=== PATIENT | female | born 1955 | race Caucasian/White ===

== ENCOUNTER 2019-01-26 17:22 | Emergency (ER) | payer OTHER ==
[~2019-01-26] VITALS: Ht 162.6 cm; Wt 47.6 kg
[2019-01-26 17:25] VITALS: BP 128/76
--- NOTE | 2019-01-26 17:31 | NUR ---
PAYTON DORSEY AT BEDSIDE FOR EVAL.
[2019-01-26] MEDS ORDERED: IBUPROFEN 600 MG TABLET PO ONE ×2 (17:39→18:00)
--- NOTE | 2019-01-26 17:40 | NUR ---
HARD COLLAR APPLIED
--- NOTE | 2019-01-26 17:43 | NUR ---
PT IS WHEELED TO CT SCAN VIA [facility].
--- NOTE | 2019-01-26 18:42 | NUR ---
Patient discharged in custody in stable condition. Written and verbal after care instructions given. Patient verbalizes understanding of instruction.
== END 2019-01-26 18:51 ==
LOC: ER 17:35
DX: S16.1XXA Strain of muscle, fascia and tendon at neck level, initial encounter (principal); I10 Essential (primary) hypertension; E03.9 Hypothyroidism, unspecified; G43.909 Migraine, unspecified, not intractable, without status migrainosus; F29 Unspecified psychosis not due to a substance or known physiological condition; Z02.89 Encounter for other administrative examinations; V49.49XA Driver injured in collision with other motor vehicles in traffic accident, initial encounter; Y93.89 Activity, other specified; Y92.488 Other paved roadways as the place of occurrence of the external cause; Y99.8 Other external cause status
CPT/HCPCS: 72125; 99284; L0172

== ENCOUNTER 2019-11-24 12:23 | Inpatient (IN) | payer BC, OTHER ==
[~2019-11-24] VITALS: Ht 157.5 cm; Wt 51.3 kg
--- NOTE | 2019-11-24 12:35 | NUR ---
BIBA From Home "Missed steps fell forward. Pain on head/R wrist and groin" Denies LOC. Patient a/ox4, breathing even and unlabored, no sob noted, kept comfortable.
[2019-11-24] MEDS ORDERED: ONDANSETRON HCL/PF 4 MG/2 ML VIAL ONE (12:39)
[2019-11-24] MEDS ORDERED: MORPHINE SULFATE INJ 4 MG/ML DISP.SYRIN ONE ×2 (12:39→14:03)
--- NOTE | 2019-11-24 12:50 | NUR ---
iv line established, blood drawn and sent to lab.
--- NOTE | 2019-11-24 12:55 | NUR ---
COAT CUTTER AT BEDSIDE FOR XRAY.
[2019-11-24] MEDS ORDERED: ONDANSETRON HCL/PF 4 MG/2 ML VIAL IVP ONE (13:00)
[2019-11-24] MEDS ORDERED: MORPHINE SULFATE INJ 2 MG/ML DISP.SYRIN IV ONE ×2 (13:00→14:00)
[2019-11-24] MEDS ORDERED: PROPOFOL 20 ML IV ONE (13:13)
[2019-11-24] MEDS ORDERED: PROPOFOL 200 MG/20 ML VIAL IV ONE (13:30)
[2019-11-24 13:32] LABS: BASOPHILS % (AUTO) 0.3 % (0.0-2.0); EOSINOPHILS % (AUTO) 1.6 % (0.0-6.0); HEMATOCRIT 36 % (33-45); HEMOGLOBIN 12.2 g/dL (11.5-14.8); LYMPHOCYTES # (AUTO) 2.4 /CMM (0.8-4.8); LYMPHOCYTES % (AUTO) 22.8 % (20.0-44.0); MEAN CORPUSCULAR HGB CONC 34 g/dl (31.0-36.0); MEAN CORPUSCULAR VOLUME 97 fL (82-100); MONOCYTES # (AUTO) 0.6 /CMM (0.1-1.30); MONOCYTES % (AUTO) 6.3 % (2.0-12.0); NEUTROPHILS # (AUTO) 7.1 /CMM (1.8-8.9); PLATELET COUNT (AUTO) 222 /CMM (150-450); RED BLOOD CELL COUNT(AUTO) 3.74 MIL/uL (4.0-5.2); WHITE BLOOD COUNT (AUTO) 10.3 K/uL (4.3-11.0)
--- NOTE | 2019-11-24 13:32 | NUR ---
TIMEOUT FOR RIGHT WRIST REDUCTION UNDER MODERATE SEDATION. PATIENT SIGNED CONSENT. PATIENT PLACED ON O2 AT 2LPM VIA NC PRIOR TO PROCEDURE.
[2019-11-24 13:35] LABS: CALCIUM, SERUM 8.6 mg/dL (8.5-10.1)
--- NOTE | 2019-11-24 13:45 | NUR ---
PAGED The [employer] AND BEEN ON HOLD.
--- NOTE | 2019-11-24 14:00 | NUR ---
PAGED EPIC AGAIN AND NO ANSWER.
[2019-11-24] MEDS ORDERED: QUET400T PO (14:09)
[2019-11-24] MEDS ORDERED: PANT40TA4 PO (14:09)
[2019-11-24] MEDS ORDERED: TRAZ150T75 PO (14:09)
[2019-11-24] MEDS ORDERED: LORA-259 PO (14:09)
[2019-11-24] MEDS ORDERED: ATEN50TA PO (14:09)
[2019-11-24] MEDS ORDERED: ATEN25TA PO (14:09)
[2019-11-24] MEDS ORDERED: TRAM50TA2 PO (14:09)
--- NOTE | 2019-11-24 14:50 | NUR ---
CALLED NURSING SUP FOR M/S BED.
--- NOTE | 2019-11-24 14:58 | NUR ---
NURSING SUP GAVE M/S BED 104.
[2019-11-24] MEDS ORDERED: ONDANSETRON HCL/PF 4 MG/2 ML VIAL IVP PRN (15:00)
[2019-11-24] MEDS ORDERED: Z GUARD REMEDY 2 OZ OINT TP PRN (15:00)
[2019-11-24] MEDS ORDERED: MAGNESIUM HYDROXIDE 30 ML UDC PO PRN (15:00)
[2019-11-24] MEDS ORDERED: TRAMADOL HCL 50 MG TABLET PO PRN (15:00)
[2019-11-24] MEDS ORDERED: ACETAMINOPHEN 325 MG TABLET PO PRN (15:00)
[2019-11-24] MEDS ORDERED: MAG HYDROX/AL HYDROX/SIMETH 30 ML UDC PO PRN (15:00)
--- NOTE | 2019-11-24 15:19 | NUR ---
REPORT GIVEN TO DEISI CANNON.
--- NOTE | 2019-11-24 15:52 | NUR ---
PATIENT TRANSFERRED TO ROOM 104 IN STABLE CONDITION.
--- NOTE | 2019-11-24 16:00 | NUR ---
KASSIDY RN NOTES GOT REPORT FROM ER GERALD.RECEIVED PT FROM ER MED SURGE . ALERT AND ORIENTED X4. PT IS ON RA. PT IS HERE BECAUSE OF BROKEN WRIST AND PELVIS.SAFETY MEASUREMENTS ARE IMPLEMENTED. BED IS IN THE LOWEST POSITION. RAILS ARE UP X2. CALL LIGHT WITHIN THE REACH. WILL CONTINUE TO MONITOR
[2019-11-24 16:34] LABS: ALBUMIN 3.6 g/dL (3.4-5.0); BILIRUBIN,DIRECT 0.1 mg/dL (0.0-0.2); BILIRUBIN,TOTAL 0.5 mg/dL (0.2-1.0); TOTAL PROTEIN, SERUM 6.5 g/dL (6.4-8.2)
[2019-11-24] MEDS: HYDROCODONE/APAP 5/325MG TABLET PO PRN (16:58)
[2019-11-24] MEDS: QUETIAPINE FUMARATE 100 MG TABLET PO SCH (16:59)
[2019-11-24 17:00] VITALS: BP 120/75
[2019-11-24] MEDS: ENOXAPARIN SODIUM 40 MG/0.4 ML DISP.SYRIN SQ SCH (17:03)
[2019-11-24] MEDS: ATENOLOL 25 MG TABLET PO SCH (17:11)
--- NOTE | 2019-11-24 19:09 | NUR ---
KASSIDY CLOSING NOTES PT IS RESTING IN THE BED. ALERT AND ORIENTED X4. PT IS ON RA. NO RESPIRATORY DISTRESS NOTED. ALL MEDS ARE GIVE. ALL NEEDS ARE MET. SAFETY MEASUREMENTS ARE IMPLEMENTED. BED IS IN THE LOWEST POSITION AND RAILS ARE UP X2. LAC#22 IS INTAKE, WELL FLUSHED AND NO SIGN OF DISTRESS IS NOTED. CALL LIGHT WITHIN THE REACH. WILL ENDORSE TO NIGHTSHIFT.
--- NOTE | 2019-11-24 19:30 | NUR ---
RN OPENING NOTES received client resign in bed. Client complains of moderate pain on fingers of right wrist. The client was admitted because of falling and causing damage to right wrist. The client remains alert and oriented x4. Adheres and follow commands appropriately. The client is concern with her right hand fingers as she says it feels painful. The finger were asses for movement and sensation and capillary refill,which is less than 3 sec at this time; Charge Nurse Selma performed the assessment. The client perfusion is normal at this time, skin is intact, no further intervention but will continue to monitor closely. Comfort measures provided, all safety mechanisms in place, will continue to monitor.
[2019-11-24] MEDS: MORPHINE SULFATE INJ 2 MG/ML DISP.SYRIN IV PRN (19:53)
[2019-11-24] MEDS: TRAZODONE 50 MG TABLET PO SCH (21:18)
[2019-11-24] MEDS: LORAZEPAM 1 MG TABLET PO PRN (22:47)
--- NOTE | 2019-11-25 | NUR ---
client remains stable at this time, repeatedly has requested pain medication. At this moment the client remains calm and with just mild pain. Pain medication being administered as indicated.
--- NOTE | 2019-11-25 00:36 | NUR ---
ASSESSED SPO2 ON THE FINGERS OF THE RIGHTS WRIST FOR O2 SAT; SATURATION AT 98%. CAP REFILL LESS THAN 3SEC ON RIGHT WRIST FINGER.
[2019-11-25] MEDS: MORPHINE SULFATE INJ 2 MG/ML DISP.SYRIN IV PRN ×4 (00:49→15:41)
[2019-11-25 05:00] VITALS: BP 113/69
[2019-11-25 06:52] LABS: BASOPHILS % (AUTO) 0.4 % (0.0-2.0); EOSINOPHILS % (AUTO) 1.9 % (0.0-6.0); HEMATOCRIT 34 % (33-45); HEMOGLOBIN 11.5 g/dL (11.5-14.8); LYMPHOCYTES # (AUTO) 1.1 /CMM (0.8-4.8); LYMPHOCYTES % (AUTO) 15.9 % (20.0-44.0); MEAN CORPUSCULAR HGB CONC 34 g/dl (31.0-36.0); MEAN CORPUSCULAR VOLUME 96 fL (82-100); MONOCYTES # (AUTO) 0.5 /CMM (0.1-1.30); MONOCYTES % (AUTO) 7.9 % (2.0-12.0); NEUTROPHILS % (AUTO) 73.9 % (43.0-81.0); PLATELET COUNT (AUTO) 200 /CMM (150-450); RED BLOOD CELL COUNT(AUTO) 3.54 MIL/uL (4.0-5.2); WHITE BLOOD COUNT (AUTO) 6.7 K/uL (4.3-11.0)
--- NOTE | 2019-11-25 07:32 | NUR ---
KASSIDY RESEARCH HOME ECONOMIST OPENING NOTES PT IS HAVING BREAKFAST IN BED. ALERT AND ORIENTED X4. PT IS ON RA WITH NO SIGNS OF RESPIRATORY DISTRESS. SAFETY MEASUREMENTS ARE IMPLEMENTED. BED IS IN THE LOWEST POSITION AND RAILS ARE UP X2. LAC#22 IS INTAKE, WELL FLUSHED AND NO SIGN OF INFILTRATION IS NOTED. CALL LIGHT WITHIN THE REACH. WILL CONTINUE TO MONITOR.
[2019-11-25 08:07] LABS: THYROID STIMULATING HORMONE 1.001 uIU/mL (0.358-3.74)
[2019-11-25 08:19] LABS: CALCIUM, SERUM 8.7 mg/dL (8.5-10.1); PHOSPHORUS 3.6 mg/dL (2.5-4.9); POTASSIUM 4.4 mmol/L (3.5-5.1)
[2019-11-25] MEDS: PANTOPRAZOLE 40 MG TABLET.DR PO SCH (08:24)
[2019-11-25] MEDS: QUETIAPINE FUMARATE 100 MG TABLET PO SCH ×2 (08:24→17:41)
[2019-11-25] MEDS: LORAZEPAM 1 MG TABLET PO PRN ×2 (08:25→13:51)
[2019-11-25] MEDS: ATENOLOL 50 MG TABLET PO SCH (08:25)
[2019-11-25 17:00] VITALS: BP 106/68
--- NOTE | 2019-11-25 17:30 | NUR ---
KASSIDY RN NOTES CHECK T BLOOD PRESSURE WAS 87/[address] JACKSON TO HOLD AT[address]OL[address] DR LEACH.HELD BP MED
[2019-11-25] MEDS: ATENOLOL 25 MG TABLET PO SCH (18:00)
--- NOTE | 2019-11-25 18:14 | NUR ---
KASSIDY CLOSING NOTES PT IS RESTING IN THE BED. ALERT AND ORIENTED X4. PT IS ON RA. NO RESPIRATORY DISTRESS NOTED. ALL MEDS ARE GIVE. ALL NEEDS ARE MET. LAC #20 IS FLUSHED WELL, INTAKE AND NO SIGN OF INFILTRATION NOTED. PT IS GOING TO HAVE SURGERY OF RIGHT ORIF ON WEDNESDAY. NPO SINCE WEDNESDAY MIDNIGHT AND NO ANTICOAGULANTS SHOULD BE GIVEN .SAFETY MEASUREMENTS ARE IMPLEMENTED PER HOSPITAL POLICY. CALL LIGHT WITHIN THE REACH. WILL ENDORSE TO NIGHTSHIFT.
[2019-11-25 20:00] VITALS: BP 80/49
--- NOTE | 2019-11-25 20:00 | NUR ---
HOUSEHOLD PERSONAL ASSISTANT OPENING NOTES RECEIVED PATIENT IN BED, AWAKE, CONSCIOUS, DROWSY, O2 @ 2LPM VIA NASAL CANNULA, UNLABORED BREATHING, NO SIGNS OF RESPIRATORY DISTRESS, LAC #20G SL, NO COMPLAINTS OF PAIN, SIDE RAILS UP X2, WILL CONTINUE TO MONITOR.
--- NOTE | 2019-11-25 20:10 | NUR ---
BP- 80/49, HR- 78, O2 SAT 96%.
--- NOTE | 2019-11-25 20:40 | NUR ---
BP- 79/49, HR- 78, O2 SAT 96%.
--- NOTE | 2019-11-25 20:53 | NUR ---
TALKED AND SPOKED TO DR. JOHNSON. INFORMED HIM REGARDING PATIENT'S BLOOD PRESSURE. HE ORDERED NS 500CC BOLUS.
[2019-11-25] MEDS ORDERED: IV NS 0.9% 500 ML IV ONE (21:00)
[2019-11-25] MEDS: ENOXAPARIN SODIUM 40 MG/0.4 ML DISP.SYRIN SQ SCH (21:00)
--- NOTE | 2019-11-25 21:10 | NUR ---
NS 5OOCC BOLUS STARTED.
--- NOTE | 2019-11-25 21:33 | NUR ---
MS PRIVATE CHEF NOTES LOVENOX ON HOLD. FOR SURGERY ON WEDNESDAY. ALSO ENDORSED TO ME BY AM SHIFT NURSE.
--- NOTE | 2019-11-25 21:43 | NUR ---
BOLUS ENDED. BP- 88/50, HR- 75, O2 SAT 98%.
[2019-11-25] MEDS: TRAZODONE 50 MG TABLET PO SCH (22:00)
--- NOTE | 2019-11-25 22:11 | NUR ---
TRAZODONE ON HOLD. LOW BP. BP- 88/50.
--- NOTE | 2019-11-25 22:38 | NUR ---
BP- 80/46, HR- 74, O2 SAT 97%.
--- NOTE | 2019-11-25 23:35 | NUR ---
BP- 81/46, HR- 72, O2 SAT 98%.
--- NOTE | 2019-11-26 00:30 | NUR ---
BP- 89/50, HR- 74, O2 SAT 98%.
--- NOTE | 2019-11-26 01:00 | NUR ---
BP- 82/46, HR- 73, O2 SAT 98%.
--- NOTE | 2019-11-26 01:30 | NUR ---
BP- 85/48, HR- 75, O2 SAT 98%.
--- NOTE | 2019-11-26 02:25 | NUR ---
BP- 90/55, HR- 75, O2 SAT 96%. MANUAL BP- 90/60.
--- NOTE | 2019-11-26 03:00 | NUR ---
BP- 82/49, HR-78, O2 SAT 94%.
--- NOTE | 2019-11-26 03:59 | NUR ---
BP- 81/49, HR- 77, O2 SAT 95%.
[2019-11-26 04:00] VITALS: BP 81/49
--- NOTE | 2019-11-26 04:29 | NUR ---
BP- 86/54, HR- 74, O2 SAT 94%.
--- NOTE | 2019-11-26 04:37 | NUR ---
BP- 93/60, HR- 74, O2 SAT 95%. RIGHT LEG.
--- NOTE | 2019-11-26 05:00 | NUR ---
BP- 100/55, HR- 73, O2 SAT 97%.
[2019-11-26 05:02] VITALS: BP 100/55
--- NOTE | 2019-11-26 05:56 | NUR ---
BP- 140/68, HR- 85, O2 SAT 93%. PATIENT JUST WENT TO THE BATHROOM TO URINATE AND ASSISTED. PATIENT EXPERIENCE PAIN ON HER RIGHT HIP WHEN WALKING.
--- NOTE | 2019-11-26 06:48 | NUR ---
MS TELE CLOSING NOTES ENDORSED PATIENT IN BED, AWAKE, CONSCIOUS, DROWSY, O2 @ 2LPM VIA NASAL CANNULA, UNLABORED BREATHING, NO SIGNS OF RESPIRATORY DISTRESS, LAC #20G SL, WITH A SLING ON HER RIGHT ARM, PAIN MEDS NOT GIVEN BP WAS LOW, INFORMED PATIENT THE REASON WHY PAIN MED IS NOT GIVEN, MONITORED PATIENT'S PATIENT'S BLOOD PRESSURE AND HEART RATE, SIDE RAILS UP X2 FOR SAFETY.
[2019-11-26 07:13] LABS: CALCIUM, SERUM 8.5 mg/dL (8.5-10.1); CREATININE 0.8 mg/dL (0.6-1.3); POTASSIUM 4.2 mmol/L (3.5-5.1)
--- NOTE | 2019-11-26 07:30 | NUR ---
M/S RN OPENING NOTES RECEIVED PT ON BED, A/OX4 WITH EPISODES OF FORGETFULNESS, RESPONSIVE TO ALL STIMULI. RESPIRATION EVEN AND NON LABORED WITH NO ACUTE RESPIRATORY DISTRESS, ON O2 AT 2PM VIA N/C NEEDED, HOB ELEVATED. ABD SOFT AND NON DISTENDED WITH ACTIVE BOWEL SOUNDS, WITH BEDSIDE COMMODE, OR BRP TOLERATED SECONDARY TO FALL. C/O PAIN 10/10 LEFT WRIST TO BACK, ADMINISTERED MORPHINE ORDERED. SKIN WARM TO TOUCH AND DRY, LEFT ARM ELEVATED, BLE OFFLOAD. IV SITE AT LEFT AC PATENT IN FLUSHING, NO S/SX OF INFILTRATION. SCHEDULED LEFT WRIST ORIF 11/26. BED IN LOW LOCKED POSITION, SR X2 UP FOR SAFETY, CALL LIGHT WITHIN REACH. CONT TO EVALUATE CARE
[2019-11-26] MEDS: PANTOPRAZOLE 40 MG TABLET.DR PO SCH (07:41)
[2019-11-26] MEDS: MORPHINE SULFATE INJ 2 MG/ML DISP.SYRIN IV PRN ×3 (07:42→18:14)
[2019-11-26 07:53] LABS: BASOPHILS % (AUTO) 0.5 % (0.0-2.0); EOSINOPHILS % (AUTO) 5.4 % (0.0-6.0); HEMATOCRIT 33 % (33-45); LYMPHOCYTES # (AUTO) 1.4 /CMM (0.8-4.8); LYMPHOCYTES % (AUTO) 22.3 % (20.0-44.0); MEAN CORPUSCULAR HGB CONC 34 g/dl (31.0-36.0); MEAN CORPUSCULAR VOLUME 97 fL (82-100); MONOCYTES # (AUTO) 0.7 /CMM (0.1-1.30); MONOCYTES % (AUTO) 10.9 % (2.0-12.0); NEUTROPHILS # (AUTO) 3.7 /CMM (1.8-8.9); NEUTROPHILS % (AUTO) 60.9 % (43.0-81.0); PLATELET COUNT (AUTO) 173 /CMM (150-450); RED BLOOD CELL COUNT(AUTO) 3.36 MIL/uL (4.0-5.2); WHITE BLOOD COUNT (AUTO) 6.1 K/uL (4.3-11.0)
--- NOTE | 2019-11-26 08:27 | NUR ---
M/S RN NOTES CHARGE NURSE REPORTED CRITICAL LAB REPORTED GLUCOSE - 400. DR. BEEBE PAGED FOR THE CRITICAL LEVEL. LATEST BLOOD SUGAR 391-15 UNITS COVERAGE. NO RESPONSE AT THIS TIME. CONTINUE TO FF UP
[2019-11-26 08:28] VITALS: BP 121/69
[2019-11-26] MEDS: QUETIAPINE FUMARATE 100 MG TABLET PO SCH ×2 (08:31→17:13)
[2019-11-26] MEDS: ATENOLOL 50 MG TABLET PO SCH (08:31)
--- NOTE | 2019-11-26 09:19 | NUR ---
M/S RN NOTES PT SEEN AND EVALUATED BY MANUEL DENNISON NP. SURGERY PLANNED TOMORROW FOR LEFT WRIST, PT AWARE NPO AFTER MIDNIGHT. PELVIC FRACTURE WITH NO RECOMMENDED SURGICAL INTERVENTION, WEIGHT BEARING JOHANA. PT CONCERNS ATTENDED. PT VERBALIZED UNDERSTANDING WITH HOSPITALIST DISCUSSION OF PLAN OF CARE
[2019-11-26 16:12] VITALS: BP 123/63
[2019-11-26] MEDS: ATENOLOL 25 MG TABLET PO SCH (17:14)
--- NOTE | 2019-11-26 17:22 | NUR ---
M/S RN NOTES OBTAINED CONSENT FOR RIGHT DISTAL RADIAL ORIF FOR 11/26 SURGERY, PT UNDERSTOOD THE PROCEDURE DISCUSSED BY SURGEON AND HOSPITALIST STATED
--- NOTE | 2019-11-26 18:38 | NUR ---
M/S RN CLOSING NOTES PT A/OX4 TOLERATING ROOM AIR WITH O2 SAT AT 96%. NO PRESENCE OF ACUTE RESPIRATORY DISTRESS. PAIN LEVEL 7-10 ON RIGHT UPPER WRIST AND HIP SECONDARY TO FRACTURE, SURGERY SCHEDULED / AFTER 12NN FOR RIGHT DISTAL RADIAL ORIF WITH DR. PAULA, PAIN MANAGED WITH CURRENT PAIN MEDICATION PER EVALUATION WITH PATIENT. RIGHT ARM WITH CIRCULATION, ABLE TO WIGGLE, NO PALENESS/COLDNESS, TINGLING SENSATION AT TIMES YET RESOLVING AFTER WIGGLING. NO BM TODAY WITH URGE. NO NEW OPEN SKIN BREAKDOWN. IV SITE LEFT AC PATENT IN FLUSHING, NO S/SX OF INFILTRATION. ALL CONCERNS ATTENDED, CALL LIGHT WITHIN REACHED. ENDORSED CARE TO NEXT SHIFT
--- NOTE | 2019-11-26 20:00 | NUR ---
RN opening noted Received resident in bed. Awake a/o x4. Breathing even and unlabored in RA. No acute distress noted. Denies any pain or discomfort. Noted with split on right forearm. Denies any pain, able to move fingers. Good circulation noted. No paleness noted. IV on left ac #20g noted. Dressing clean and intact. Pt ambulatory with assist to bedside commode. Right arm elevated. HOB elevated. Bed in lowest position. Call light within reach. All needs rendered. Will continue to monitor.
[2019-11-26] MEDS: ENOXAPARIN SODIUM 40 MG/0.4 ML DISP.SYRIN SQ SCH ×2 (20:31→20:46)
[2019-11-26] MEDS: TRAZODONE 50 MG TABLET PO SCH (21:50)
--- NOTE | 2019-11-27 06:15 | NUR ---
MS RN note Informed Dr. Juarez patient has no IVF , she's NPO since midnight and not urinating. Per MD, " rounding team can see". Will endorse to next shift.
--- NOTE | 2019-11-27 06:36 | NUR ---
RN closing note Resident in bed, asleep. Breathing even and unlabored on saturation at 94%. No acute distress noted. No facial grimacing noted. LAC 20Gauge patent. No signs of infiltration noted. Splint on right arm noted. Skin WNL, able to wiggle fingers. Sensation present. Preop checklist started. Pt remains NPO. SR up. Call light within reach. Bed in lowest positioned. All needs rendered. Will continue to monitor. Will endorse to next shift for continuity of care.
[2019-11-27] MEDS: PANTOPRAZOLE 40 MG TABLET.DR PO SCH (07:30)
--- NOTE | 2019-11-27 07:37 | NUR ---
KASSIDY OPENING NOTES PT IS RESTING IN THE BED. ALERT AND ORIENTED X4. PT IS ON RA. NO RESPIRATORY DISTRESS NOTED. CONSENT SIGN FOR SURGERY. SAFETY MEASUREMENTS ARE IMPLEMENTED PER HOSPITAL PROTOCOL. BED IS IN THE LOWEST POSITION AND RAILS ARE UP X2. LAC#20 IS INTAKE, WELL FLUSHED AND NO SIGN OF INFILTRATION IS NOTED. CALL LIGHT WITHIN THE REACH. WILL CONTINUE TO MONITOR.
[2019-11-27] MEDS: ATENOLOL 50 MG TABLET PO SCH (08:25)
[2019-11-27] MEDS: QUETIAPINE FUMARATE 100 MG TABLET PO SCH ×2 (08:25→16:26)
--- NOTE | 2019-11-27 11:10 | NUR ---
KASSIDY RN NOTES CALLED FROM PREOP OFFICE TO GET PT READY FOR ORIF SURGERY .ALL CONSENT ARE SIGNED. VS WNL. PT IS ON RA SAT 94%. ALL JEWELRY, HEARING AIDS,AND GLASSES ARE REMOVED.PT WAS TAKEN IN SAFELY MATTER.
--- NOTE | 2019-11-27 12:16 | NUR ---
KASSIDY NOTES PT WAS TAKEN TO OR. PT VS WNL.
[2019-11-27] MEDS ORDERED: BUPIVACAINE 0.5 % PF 150 MG/30 ML VIAL ONE (12:25)
[2019-11-27] MEDS ORDERED: BACITRACIN 50000 UNITS/VIAL ONE (12:25)
[2019-11-27] MEDS ORDERED: ROCURONIUM BROMIDE 50 MG/5 ML ONE (13:04)
[2019-11-27] MEDS ORDERED: SUCCINYLCHOLINE CHLORIDE 20 MG/ML VIAL ONE (13:04)
[2019-11-27] MEDS ORDERED: FENTANYL PF 100MCG/2ML AMPUL ONE ×3 (13:04→15:25)
[2019-11-27] MEDS ORDERED: HYDROCODONE/APAP 5/325MG TABLET PO PRN (16:00)
--- NOTE | 2019-11-27 16:19 | NUR ---
KASSIDY RN NOTES PT CAME BACK FROM OR. PT BP IS 177/85 SAT IN 98%. GOING TO CONTINUE TO REGULAR DIET. GOING TO GIVE HER PAIN MEDS AND BLOOD PRESSURE MEDICATION
[2019-11-27] MEDS: HYDROCODONE/APAP 5/325MG TABLET PO PRN ×2 (16:27→23:24)
[2019-11-27] MEDS: ATENOLOL 25 MG TABLET PO SCH (17:27)
[2019-11-27] MEDS: IV LR 1000 ML 1,000 ML IV PRN (17:50)
--- NOTE | 2019-11-27 19:26 | NUR ---
KASSIDY CLOSING NOTES PT IS RESTING IN THE BED. ALERT AND ORIENTED X4. PT IS ON RA. NO RESPIRATORY DISTRESS NOTED. ALL MEDS ARE GIVE. ALL NEEDS ARE MET. PT CAME BACK FROM SURGERY IN STABLE CONDITION. SAFETY MEASUREMENTS ARE IMPLEMENTED BY HOSPITAL PROTOCOL. BED IS IN THE LOWEST POSITION AND RAILS ARE UP X2. LAC#22 IS INTAKE AND LR OF 1000 ML @ 75ML/HR IS RUNNING, WELL FLUSHED AND NO SIGN OF INFILTRATION IS NOTED. CALL LIGHT WITHIN THE REACH. WILL ENDORSE TO NIGHTSHIFT.
--- NOTE | 2019-11-27 19:30 | NUR ---
RN OPENING NOTE RECEIVED PATIENT IN BED RESTING ALERT ORIENTED X4 VERBALLY RESPONSIVE,ABLE TO MAKE NEEDS KNOWN FULL CODE ON MED SURG MONITORING,NO SOB NOT ACUTE DISTRESS NOTED,ON ROOM AIR 92% IV SITE IS ON LEFT AC INTACT PATENT,LR RUNNING 75CC/HR,AMBULATORY WITH ASSIST,BED IN LOW POSITION LOCKED BED ALARM IS ON,SIDE RAIL X3 UP,IMPALEMENT SAFETY MEASURE, CALL LIGHT WITHIN REACH,CONTINUE TO MONITOR,
[2019-11-27] MEDS: MORPHINE SULFATE INJ 2 MG/ML DISP.SYRIN IV PRN (19:53)
--- NOTE | 2019-11-27 19:53 | NUR ---
RN NOTE MORPHINE 2MG/ML GIVEN PRN EVERY 4HOURS FOR PAIN 10/22 CONTINUE TO MONITOR.
[2019-11-27] MEDS: CEFAZOLIN 2 GM in IV D5W 100 ML IV SCH (21:09)
[2019-11-27] MEDS: TRAZODONE 50 MG TABLET PO SCH (21:11)
[2019-11-28] MEDS ORDERED: ALPRAZOLAM 1 MG TABLET PO ONE
[2019-11-28] MEDS: CEFAZOLIN 2 GM in IV D5W 100 ML IV SCH (04:56)
[2019-11-28] MEDS: MORPHINE SULFATE INJ 2 MG/ML DISP.SYRIN IV PRN ×3 (05:10→14:25)
--- NOTE | 2019-11-28 05:10 | NUR ---
RN NOTE MORPHINE 2MG/1ML PRN GIVEN FOR PAIN 10/22 CONTINUE TO MONITOR.
--- NOTE | 2019-11-28 05:30 | NUR ---
RN NOTE O2:92% IS ON ROOM AIR, APPLIED 2L/MIN OXYGEN VIA NASAL CANNULA,CONTINUE TO MONITOR.
--- NOTE | 2019-11-28 06:30 | NUR ---
RN CLOSING NOTE PATIENT REMAINS ALERT ORIENTED X4 VERBALLY RESPONSIVE FULL CODE,ABLE TO MAKE NEEDS KNOWN,ON MED SURG MONITORING,NO SOB NOT ACUTE DISTRESS NOTED,ON 2L OXYGEN VIA NASAL CANNULA,98% SINUS RHYTHM 79,IV LEFT AC INTACT PATIENT LACTATE RINGER 75 CC RUNNING,ALL DUE MEDS GIVEN MD ORDERED KEPT CLEAN AND DRY ALL THE TIME,KEPT COMFORTABLE,KEPT CALL LIGHT WITHIN REACH,ALL NEEDS MET.ENDORSE NEXT SHIFT FOR CONTINUATION OF CARE.
[2019-11-28 07:19] LABS: BASOPHILS % (AUTO) 0.3 % (0.0-2.0); EOSINOPHILS % (AUTO) 4.8 % (0.0-6.0); HEMATOCRIT 32 % (33-45); HEMOGLOBIN 10.9 g/dL (11.5-14.8); LYMPHOCYTES # (AUTO) 1.2 /CMM (0.8-4.8); LYMPHOCYTES % (AUTO) 15.3 % (20.0-44.0); MEAN CORPUSCULAR HGB CONC 34 g/dl (31.0-36.0); MEAN CORPUSCULAR VOLUME 96 fL (82-100); MONOCYTES # (AUTO) 0.8 /CMM (0.1-1.30); NEUTROPHILS # (AUTO) 5.3 /CMM (1.8-8.9); NEUTROPHILS % (AUTO) 69.6 % (43.0-81.0); PLATELET COUNT (AUTO) 182 /CMM (150-450); RED BLOOD CELL COUNT(AUTO) 3.38 MIL/uL (4.0-5.2); WHITE BLOOD COUNT (AUTO) 7.7 K/uL (4.3-11.0)
[2019-11-28 07:58] LABS: CALCIUM, SERUM 8.5 mg/dL (8.5-10.1); CREATININE 0.9 mg/dL (0.6-1.3); POTASSIUM 4.2 mmol/L (3.5-5.1)
[2019-11-28 08:00] VITALS: BP 170/82
[2019-11-28] MEDS ORDERED: ENOXAPARIN SODIUM 40 MG/0.4 ML DISP.SYRIN SQ SCH (09:00)
[2019-11-28] MEDS: QUETIAPINE FUMARATE 100 MG TABLET PO SCH (09:27)
[2019-11-28] MEDS: PANTOPRAZOLE 40 MG TABLET.DR PO SCH (09:27)
[2019-11-28] MEDS: ATENOLOL 50 MG TABLET PO SCH (09:29)
[2019-11-28] MEDS: IV LR 1000 ML 1,000 ML IV PRN (09:49)
--- NOTE | 2019-11-28 11:18 | NUR ---
This SW was contacted by bench repair technician Soon regarding this patient wanting an admission letter for patient's records. This SW to provide patient with this.
--- NOTE | 2019-11-28 11:46 | NUR ---
Pt was received in bed, a, o x 4. Is pleasant and cooperative. LR at 75 cc/hr infusing through the LAC PIV. R arm cast/dressing is dry and intact. Complains of pain and is aware of the Morphine IV schedule. Ambulates to the bathroom or bedside commode with assist.
[2019-11-28 12:00] VITALS: BP 155/77
--- NOTE | 2019-11-28 13:58 | NUR ---
Patient request for Admission letter to be sent to her buckle stringer Perez has been completed by this SW.
--- NOTE | 2019-11-28 15:16 | NUR ---
Pt was discharged today to [facility], gave report to Rosa Elena CANNON. Pt was transported by EMT, discharge paper work completed by Sarah Lopez RN, belongings' list was completed by Pili MERCEDES. Discharge exit note copy was given to EMT, latest BP was 116/46 HR 84 on RA O2 sat 96% afebrile. All belongings were given to EMT including a pair of hearing aids.
[2019-11-28 15:38] VITALS: BP 114/61
== END 2019-11-28 15:30 | DRG 511 ==
LOC: ER 12:32 → MEDSG1 15:17
PROVIDERS: ADMIT Nurse Practitioner Acute Care; ATTEND Hospitalist
PROC: 0PSH04Z Reposition Right Radius with Internal Fixation Device, Open Approach (ICD-10-PCS; principal; 2019-11-27)
DX: S52.501A Unspecified fracture of the lower end of right radius, initial encounter for closed fracture (principal); S32.591A Other specified fracture of right pubis, initial encounter for closed fracture; E87.1 Hypo-osmolality and hyponatremia; Y92.009 Unspecified place in unspecified non-institutional (private) residence as the place of occurrence of the external cause; E03.9 Hypothyroidism, unspecified; S52.601A Unspecified fracture of lower end of right ulna, initial encounter for closed fracture; W10.9XXA Fall (on) (from) unspecified stairs and steps, initial encounter; Y92.9 Unspecified place or not applicable; I10 Essential (primary) hypertension; F31.9 Bipolar disorder, unspecified; F41.9 Anxiety disorder, unspecified; M54.30 Sciatica, unspecified side; Z79.899 Other long term (current) drug therapy; M48.02 Spinal stenosis, cervical region; S00.03XA Contusion of scalp, initial encounter; G47.00 Insomnia, unspecified; Z98.890 Other specified postprocedural states; R73.9 Hyperglycemia, unspecified; M25.78 Osteophyte, vertebrae; M12.9 Arthropathy, unspecified; M41.9 Scoliosis, unspecified; M43.12 Spondylolisthesis, cervical region
CPT/HCPCS: 36415; 70450-TC; 71045-TC; 72125-TC; 72170-TC; 73100-TC; 73110; 80048-TC; 80061-TC; 80076-TC; 83735-TC; 84100-TC; 84443-TC; 85025-TC; 85730-TC; 87081-TC; C9803-CS; G0378; G0500; J0330; J0690; J1650; J2270; J2405; J2704; J3010; J3490; J7030; J7060; J7120

== ENCOUNTER 2021-09-07 11:04 | Emergency (ER) | payer MEDICARE, OTHER ==
[~2021-09-07] VITALS: Ht 157.5 cm; Wt 72.1 kg
[~2021-09-07 11:04] MED LIST: ATEN25TA PO; ATEN50TA PO; LORA-259 PO; PANT40TA49 PO; QUET400T PO; TRAM50TA2 PO; TRAZ150T75 PO
--- NOTE | 2021-09-07 11:45 | NUR ---
BIBPA FOR FREQUENT URINATION SINCE 299 TODAY PER PT. PLACED ON BED, AAOX4, WITH BEARABLE PAIN
[2021-09-07] MEDS ORDERED: APIX5TAB PO (12:06)
[2021-09-07] MEDS ORDERED: TOPI25TA49 PO (12:06)
[2021-09-07] MEDS ORDERED: METH4TAB3 PO (12:06)
[2021-09-07] MEDS ORDERED: CLON0.5T4 PO (12:06)
[2021-09-07] MEDS ORDERED: FLUT10.62 IH (12:06)
[2021-09-07] MEDS ORDERED: CHOL100043 PO (12:06)
[2021-09-07] MEDS ORDERED: DIVA-78 PO (12:06)
[2021-09-07] MEDS ORDERED: [UNRECOGNIZED DRUG - CODE] PO (12:06)
[2021-09-07] MEDS ORDERED: TRAZ-182 PO (12:06)
[2021-09-07] MEDS ORDERED: ACET-868 PO (12:06)
[2021-09-07] MEDS ORDERED: ARIP20TA4 PO (12:06)
[2021-09-07] MEDS ORDERED: PREG100C PO (12:06)
[2021-09-07] MEDS ORDERED: PRAZ2CAP2 PO (12:06)
[2021-09-07] MEDS ORDERED: THIA100T70 PO (12:06)
[2021-09-07] MEDS ORDERED: DOCU-141 PO (12:06)
[2021-09-07] MEDS ORDERED: FURO-144 PO (12:06)
[2021-09-07] MEDS ORDERED: BACL10TA PO (12:06)
[2021-09-07] MEDS ORDERED: ASCO-352 PO (12:06)
--- NOTE | 2021-09-07 12:17 | NUR ---
URINE COLLECTED AND SENT TO LAB
[2021-09-07 12:59] LABS: BILIRUBIN,URINE NEGATIVE (NEGATIVE); COLOR,URINE YELLOW (YELLOW); LEUKOCYTE ESTERASE ,URINE TRACE (NEGATIVE); NITRITE, URINE NEGATIVE (NEGATIVE); PROTEIN,URINE NEGATIVE (NEGATIVE); UGLUCOSE NEGATIVE (NEGATIVE); UROBILINOGEN,URINE 0.2 EU/dL (0.2)
[2021-09-07 13:21] LABS: BACTERIA,URINE Few /HPF (None Seen); SQUAMOUS EPITHELIAL CELL,UR Few /HPF (None Seen); WBC,URINE 51-80 /HPF (0-3)
[2021-09-07] MEDS ORDERED: CEPH500C2 PO (13:38)
[2021-09-07] MEDS ORDERED: PHEN-704 PO (13:38)
--- NOTE | 2021-09-07 14:12 | NUR ---
[facility] TRANSPORT ETA 1510 PER KAYODE.
[2021-09-07 15:34] VITALS: BP 115/74
--- NOTE | 2021-09-07 15:35 | NUR ---
Patient discharged to [facility] in stable condition. Picked up by EMT. Written and verbal after care instructions given. Patient verbalizes understanding of instruction.
== END 2021-09-07 15:35 ==
LOC: ER 11:08
DX: N39.0 Urinary tract infection, site not specified (principal); G43.909 Migraine, unspecified, not intractable, without status migrainosus; I10 Essential (primary) hypertension; E03.9 Hypothyroidism, unspecified; Z79.899 Other long term (current) drug therapy
CPT/HCPCS: 81001; 87086-TC

== ENCOUNTER 2021-09-17 11:18 | Emergency (ER) | payer MEDICARE, OTHER ==
[~2021-09-17] VITALS: Ht 167.6 cm; Wt 65.8 kg
[~2021-09-17 11:18] MED LIST changes: +ACET-868 PO; +APIX5TAB PO; +ARIP20TA4 PO; +ASCO-352 PO; -ATEN50TA PO; +BACL10TA PO; +CEPH500C2 PO; +CHOL100043 PO; +CLON0.5T4 PO; +DIVA-78 PO; +DOCU-141 PO; +FLUT10.62 IH; +FURO-144 PO; -LORA-259 PO; +METH4TAB3 PO; +PHEN-704 PO; +PRAZ2CAP2 PO; +PREG100C PO; +THIA100T70 PO; +TOPI25TA49 PO; +TRAZ-182 PO; -TRAZ150T75 PO; +[UNRECOGNIZED DRUG - CODE] PO
--- NOTE | 2021-09-17 11:27 | NUR ---
The patient rodneypa, from snf, c/o left leg pain for years 6 ps. No apparent deformity noted. Will continue to monitor the patient.
--- NOTE | 2021-09-17 11:34 | NUR ---
AT BED SIDE
--- NOTE | 2021-09-17 12:45 | NUR ---
U/S TECH AT BED SIDE
[2021-09-17] MEDS ORDERED: ACETAMINOPHEN 325 MG TABLET ONE (12:57)
[2021-09-17] MEDS ORDERED: ACETAMINOPHEN 325 MG TABLET PO ONE (13:00)
--- NOTE | 2021-09-17 13:38 | NUR ---
[facility] CALLED FOR TRANSPORT ETA 1500 PER MARINE.
--- NOTE | 2021-09-17 14:05 | NUR ---
REPORT GIVEN TO [facility].
--- NOTE | 2021-09-17 15:25 | NUR ---
Patient discharged to home in stable condition. Written and verbal after care instructions given. Patient verbalizes understanding of instruction. PATIENT SOFTWARE TEST TECHNICIAN BY [facility] STAFF BACK TO [facility].
[2021-09-17 15:26] VITALS: BP 110/65
== END 2021-09-17 15:25 | disposition home health service (06) ==
LOC: ER 11:20
DX: G89.29 Other chronic pain (principal); M79.605 Pain in left leg; J44.9 Chronic obstructive pulmonary disease, unspecified; I10 Essential (primary) hypertension; G43.909 Migraine, unspecified, not intractable, without status migrainosus; E03.9 Hypothyroidism, unspecified; F31.9 Bipolar disorder, unspecified; Z79.899 Other long term (current) drug therapy
CPT/HCPCS: 73564-TC; 93971-TC

== ENCOUNTER 2021-09-28 22:39 | Emergency (ER) | payer MEDICARE, OTHER ==
[~2021-09-28] VITALS: Ht 157.5 cm; Wt 63.5 kg
--- NOTE | 2021-09-28 22:50 | NUR ---
JEANCARLOS FROM [facility] C/O GLF WHILE USING WALKER EARLIER TODAY. RIGHT SHOULDER/ARM PAIN WITH BLE PAIN AND HEAD. PLACED COMFORTABLY IN BED. VITALS CHECKED.
--- NOTE | 2021-09-28 23:08 | NUR ---
BROUGHT TO CT DEPT
--- NOTE | 2021-09-28 23:17 | NUR ---
Ghulam lilly in EDM - 09/28/21 at 2317 by PETER 2ND BAG OF KCL 10MEQ/50 ML STARTED. END TIME [id number]
--- NOTE | 2021-09-28 23:24 | NUR ---
BROUGHT BACK FROM CT DEPT
--- NOTE | 2021-09-28 23:52 | NUR ---
WARM BLANKETS OFFERED.
--- NOTE | 2021-09-29 00:48 | NUR ---
CALLED [facility] PEREIR[facility] MULTIPLE TIMES TO GIVE REPORT. NO ANSWER
--- NOTE | 2021-09-29 00:51 | NUR ---
SPOKE TO SRINIVAS AT THE FACILITY. REPORT GIVEN
--- NOTE | 2021-09-29 00:53 | NUR ---
[facility] ETA: 30-45MIN
--- NOTE | 2021-09-29 01:42 | NUR ---
REPORT GIVEN TO [facility] C[facility]. PATIENT WILL BE GOING BACK TO [facility]. DISCHARGE INSTRUCTION SENT WITH MEDICAL TRANSPORT.
[2021-09-29 01:48] VITALS: BP 100/61
== END 2021-09-29 01:49 ==
LOC: ER 22:40
DX: M25.511 Pain in right shoulder (principal); M25.521 Pain in right elbow; M25.561 Pain in right knee; M25.562 Pain in left knee; M25.572 Pain in left ankle and joints of left foot; M25.571 Pain in right ankle and joints of right foot; G43.909 Migraine, unspecified, not intractable, without status migrainosus; I10 Essential (primary) hypertension; E03.9 Hypothyroidism, unspecified; F31.9 Bipolar disorder, unspecified; G89.4 Chronic pain syndrome; Z86.718 Personal history of other venous thrombosis and embolism; Z79.899 Other long term (current) drug therapy
CPT/HCPCS: 70450-TC; 72125-TC; 73030-TC; 73080-TC; 73564-TC; 73590-TC; 73610-TC

== ENCOUNTER 2021-10-04 11:39 | Emergency (ER) | payer MEDICARE, OTHER ==
[~2021-10-04] VITALS: Ht 157.5 cm; Wt 67.6 kg
--- NOTE | 2021-10-04 12:13 | NUR ---
TAKEN TO CT VIA BLANQUITA
--- NOTE | 2021-10-04 14:46 | NUR ---
CALLED [facility] ETA 45-60 MINUTES
--- NOTE | 2021-10-04 15:40 | NUR ---
Patient discharged to home in stable condition. Written and verbal after care instructions given. Patient verbalizes understanding of instruction.
[2021-10-04 15:42] VITALS: BP 112/80
== END 2021-10-04 15:42 | disposition home or self-care (01) ==
LOC: ER 11:52
DX: S09.90XA Unspecified injury of head, initial encounter (principal); I10 Essential (primary) hypertension; G43.909 Migraine, unspecified, not intractable, without status migrainosus; G89.29 Other chronic pain; F41.9 Anxiety disorder, unspecified; F31.9 Bipolar disorder, unspecified; Z79.899 Other long term (current) drug therapy; W18.30XA Fall on same level, unspecified, initial encounter; Y93.89 Activity, other specified; Y92.89 Other specified places as the place of occurrence of the external cause; Y99.8 Other external cause status
CPT/HCPCS: 70450-TC

== ENCOUNTER 2021-11-28 15:38 | Emergency (ER) | payer MEDICARE, OTHER ==
[~2021-11-28] VITALS: Ht 157.5 cm; Wt 64.0 kg
--- NOTE | 2021-11-28 17:09 | NUR ---
URINE COLLECTED AND SENT TO LAB
[2021-11-28 17:31] LABS: BILIRUBIN,URINE NEGATIVE (NEGATIVE); COLOR,URINE YELLOW (YELLOW); LEUKOCYTE ESTERASE ,URINE TRACE (NEGATIVE); NITRITE, URINE NEGATIVE (NEGATIVE); PROTEIN,URINE NEGATIVE (NEGATIVE); UGLUCOSE NEGATIVE (NEGATIVE); UROBILINOGEN,URINE 0.2 EU/dL (0.2)
[2021-11-28 17:45] LABS: BASOPHILS % (AUTO) 0.4 % (0.0-2.0); HEMATOCRIT 38 % (33-45); HEMOGLOBIN 12.9 g/dL (11.5-14.8); LYMPHOCYTES % (AUTO) 43.2 % (20.0-44.0); MEAN CORPUSCULAR HGB CONC 34 g/dl (31.0-36.0); MEAN CORPUSCULAR VOLUME 100 fL (82-100); MONOCYTES # (AUTO) 0.7 K/uL (0.1-1.30); MONOCYTES % (AUTO) 9.8 % (2.0-12.0); NEUTROPHILS # (AUTO) 3.1 K/uL (1.8-8.9); NEUTROPHILS % (AUTO) 44.6 % (43.0-81.0); PLATELET COUNT (AUTO) 230 K/uL (150-450); RED BLOOD CELL COUNT(AUTO) 3.77 MIL/uL (4.0-5.2); WHITE BLOOD COUNT (AUTO) 6.9 K/uL (4.3-11.0)
[2021-11-28 17:45] LABS: BACTERIA,URINE None seen /HPF (None Seen); RBC,URINE 0-2 /HPF (0-2); SQUAMOUS EPITHELIAL CELL,UR 0-2 /HPF (None Seen)
[2021-11-28 17:55] LABS: CARBON DIOXIDE 34 mmol/L (21-32); CHLORIDE 107 mmol/L (98-107); CREATININE 1.2 mg/dL (0.6-1.3); GLUCOSE 83 mg/dL (74-106); POTASSIUM 3.1 mmol/L (3.5-5.1); SODIUM SERUM 146 mmol/L (136-145); UREA NITROGEN, BLOOD 29 mg/dL (7-18)
[2021-11-28 18:10] LABS: ALANINE AMINOTRANSFERASE 16 U/L (12-78); ALBUMIN 3.5 g/dL (3.4-5.0); ALKALINE PHOSPHATASE 64 U/L (46-116); ASPARTATE AMINOTRANSFERASE 16 U/L (15-37); BILIRUBIN,DIRECT 0.1 mg/dL (0.0-0.2); BILIRUBIN,TOTAL 0.2 mg/dL (0.2-1.0); TOTAL PROTEIN, SERUM 7.3 g/dL (6.4-8.2)
[2021-11-28] MEDS ORDERED: POTASSIUM CHLORIDE 20 MEQ TAB.PRT.SR PO ONE (18:30)
[2021-11-28] MEDS ORDERED: MORPHINE SULFATE INJ 2 MG/ML DISP.SYRIN IV ONE (20:30)
[2021-11-28] MEDS ORDERED: MORPHINE SULFATE INJ 4 MG/ML DISP.SYRIN ONE (21:53)
--- NOTE | 2021-11-28 22:45 | NUR ---
PT AMBULATORY TO RESTROOM.
--- NOTE | 2021-11-29 01:04 | NUR ---
[facility] CALLED FOR BLS BACK TO SNF PER NAZIA ETA- 70 TO 90 MIN
[2021-11-29] MEDS ORDERED: HYDROCODONE/APAP 5/325MG TABLET ONE (02:23)
--- NOTE | 2021-11-29 02:24 | NUR ---
[facility] AT BEDSIDE FOR DATA ADMINISTRATOR, REPORT GIVEN
[2021-11-29 02:27] VITALS: BP 132/70
[2021-11-29] MEDS ORDERED: HYDROCODONE/APAP 5/325MG TABLET PO ONE (02:30)
== END 2021-11-29 02:59 ==
LOC: ER 15:41
DX: R53.1 Weakness (principal); E87.6 Hypokalemia; M54.50 Low back pain, unspecified; M54.2 Cervicalgia; G43.909 Migraine, unspecified, not intractable, without status migrainosus; I10 Essential (primary) hypertension; J44.9 Chronic obstructive pulmonary disease, unspecified; G89.29 Other chronic pain; F41.9 Anxiety disorder, unspecified; F31.9 Bipolar disorder, unspecified; Z79.899 Other long term (current) drug therapy
CPT/HCPCS: 99285; 72125; 96374; 71045; 93005 ×2; 72131; 72128; 85025; 80048; 80076; 81001; 36415; 84484; 83880; J2270

== ENCOUNTER 2021-12-06 13:44 | Emergency (ER) | payer MEDICARE, OTHER ==
[~2021-12-06] VITALS: Ht 157.5 cm; Wt 59.0 kg
[2021-12-06] MEDS ORDERED: TRAM50TA PO (15:06)
--- NOTE | 2021-12-06 15:14 | NUR ---
[facility] ETA 45 MINUTES
[2021-12-06] MEDS ORDERED: TRAMADOL HCL 50 MG TABLET PO ONE (15:30)
[2021-12-06] MEDS ORDERED: TRAMADOL HCL 50 MG TABLET ONE (15:36)
--- NOTE | 2021-12-06 16:06 | NUR ---
PATIENT PICKED UP BY [facility] IN STABLE CONDITION. VITAL SIGNS TAKEN AND RECORDED. PATIENT WILL BE BROUGHT BACK TO [facility]. .
[2021-12-06 16:50] VITALS: BP 110/62
== END 2021-12-06 16:51 | disposition home or self-care (01) ==
LOC: ER 13:47
DX: G89.29 Other chronic pain (principal); G43.909 Migraine, unspecified, not intractable, without status migrainosus; I10 Essential (primary) hypertension; J44.9 Chronic obstructive pulmonary disease, unspecified; F41.9 Anxiety disorder, unspecified; F31.9 Bipolar disorder, unspecified; Z87.39 Personal history of other diseases of the musculoskeletal system and connective tissue; Z79.899 Other long term (current) drug therapy

== ENCOUNTER 2021-12-21 21:17 | Emergency (ER) | payer MEDICARE, OTHER ==
[~2021-12-21] VITALS: Ht 167.6 cm; Wt 73.9 kg
[~2021-12-21 21:17] MED LIST changes: +TRAM50TA PO
--- NOTE | 2021-12-21 21:55 | NUR ---
BIBPA UN[facility] FROM [facility] C/O LEG PAIN 10/10 & L SIDED NUMBNESS/WEAKNESS X4DAYS. HX OF CHRONIC PAIN. PATIENT IS AAOX4. ABLE TO MAKE NEEDS KNOWN. PATIENT COMPLAINT OF NUMBNESS ON LEFT SIDE OF HEAD, WITH LOSS OF HEARING BILATERAL EARS, PAIN AT BACK SCALE OF 10/10 AND WEAKNESS OF LEFT SIDE OF BODY. PATIENT CAN LIFT THE LEFT SIDE EXTREMITIES BUT WITH WEAKNESS. -CP, -SOB NOTED. ATTACHED TO MONITOR. VITALS CHECKED.
--- NOTE | 2021-12-21 22:56 | NUR ---
PT RETURNED TO ER BED [address]
[2021-12-22] MEDS ORDERED: TRAMADOL HCL 50 MG TABLET PO ONE
[2021-12-22] MEDS ORDERED: TRAMADOL HCL 50 MG TABLET ONE (00:15)
--- NOTE | 2021-12-22 00:45 | NUR ---
[facility] AT BEDSIDE FOR PATIENT TRANSFER.
--- NOTE | 2021-12-22 00:48 | NUR ---
REPORT GIVEN TO EMT [facility]. [facility]NA MADE AWARE.
--- NOTE | 2021-12-22 00:50 | NUR ---
Patient discharged to home in stable condition. Written and verbal after care instructions given. Patient verbalizes understanding of instruction.
[2021-12-22 01:22] VITALS: BP 122/70
== END 2021-12-22 01:23 | disposition home or self-care (01) ==
LOC: ER 21:19
DX: H69.82 Other specified disorders of Eustachian tube, left ear (principal); R51.9 Headache, unspecified; I10 Essential (primary) hypertension; J44.9 Chronic obstructive pulmonary disease, unspecified; K21.9 Gastro-esophageal reflux disease without esophagitis; G89.4 Chronic pain syndrome; F41.9 Anxiety disorder, unspecified; F31.9 Bipolar disorder, unspecified; Z79.899 Other long term (current) drug therapy
CPT/HCPCS: 70450-TC; 72125-TC

== ENCOUNTER 2022-03-05 20:55 | Emergency (ER) | payer MEDICARE, OTHER ==
[~2022-03-05] VITALS: Ht 167.6 cm; Wt 72.6 kg
[2022-03-05 21:30] VITALS: BP 113/72
--- NOTE | 2022-03-05 21:30 | NUR ---
BIBPA FROM SNF C/O GLF UNWITNESSED ON WEDNESDAY PAIN AT MARTIN SHOULDER, BACK AND MARTIN KNEES. PT A/OX2/3. TOLERATING R/A WELL WITH NO RESP DISTRESS; RR EVEN AND NON LABORED. SAFETY MEASURES IN PLACE.
--- NOTE | 2022-03-05 22:19 | NUR ---
DR. FRED COURTNEY AT PT'S BEDSIDE FOR EVAL
[2022-03-05] MEDS ORDERED: LIDOCAINE 5% (PATCH) 1 EA PATCH TP SCH (22:30)
[2022-03-05] MEDS ORDERED: KETOROLAC TROMETHAMINE INJ 60 MG/2 ML VIAL IM ONE (22:30)
[2022-03-05] MEDS ORDERED: LIDOCAINE 5% (PATCH) 1 EA PATCH TP ONE (22:32)
[2022-03-05] MEDS ORDERED: KETOROLAC TROMETHAMINE INJ 30 MG/ML VIAL ONE (22:33)
--- NOTE | 2022-03-05 22:42 | NUR ---
ELECTRICAL EQUIPMENT TESTER AT PT'S BEDSIDE
--- NOTE | 2022-03-05 23:48 | NUR ---
Note jojoone in EDM - 03/05/22 at 2349 by REINIER BIBPA FROM SNF C/O GLF UNWITNESSED ON WEDNESDAY PAIN AT MARTIN SHOULDER, BACK AND MARTIN KNEES. PT A/OX2/3. TOLERATING R/A WELL WITH NO RESP DISTRESS; RR EVEN AND NON LABORED. SAFETY MEASURES IN PLACE.
--- NOTE | 2022-03-05 23:50 | NUR ---
[facility] TRANSPORATION TO DC TO [facility].
--- NOTE | 2022-03-05 23:52 | NUR ---
REPORT GIVEN TO CARLOS CANNON FROM [facility].
--- NOTE | 2022-03-06 02:41 | NUR ---
[facility] ETA 15-25 MINUTES
--- NOTE | 2022-03-06 02:54 | NUR ---
[facility] AT BEDSIDE FOR TRANSPORTATION
--- NOTE | 2022-03-06 03:13 | NUR ---
[facility]
== END 2022-03-06 03:13 ==
LOC: ER 21:09
DX: M54.50 Low back pain, unspecified (principal); K21.9 Gastro-esophageal reflux disease without esophagitis; G89.4 Chronic pain syndrome; G43.909 Migraine, unspecified, not intractable, without status migrainosus; J44.9 Chronic obstructive pulmonary disease, unspecified; I10 Essential (primary) hypertension; Z86.711 Personal history of pulmonary embolism; Z79.899 Other long term (current) drug therapy; Z86.718 Personal history of other venous thrombosis and embolism; W01.0XXA Fall on same level from slipping, tripping and stumbling without subsequent striking against object, initial encounter; Y93.89 Activity, other specified; Y92.89 Other specified places as the place of occurrence of the external cause; Y99.8 Other external cause status
CPT/HCPCS: 99284; 71046; 96372; 72100; J1885

== ENCOUNTER 2022-08-09 08:38 | Emergency (ER) | payer MEDICARE, OTHER ==
[~2022-08-09] VITALS: Ht 167.6 cm; Wt 73.5 kg
--- NOTE | 2022-08-09 08:50 | NUR ---
BIBA FOR SORE THROAT SINCE YESTERDAY. A/O X 3, ABLE TO MAKE NEEDS KNOWN, TOLERATING WELL ON ROOM AIR.
[2022-08-09] MEDS ORDERED: AMOXICILLIN TRIHYDRATE 500 MG CAPSULE PO ONE (09:00)
[2022-08-09] MEDS ORDERED: IBUPROFEN 600 MG TABLET PO ONE (09:00)
[2022-08-09] MEDS ORDERED: AMOX/CLAVULANATE 250 MG TABLET ONE (09:04)
[2022-08-09] MEDS ORDERED: IBUPROFEN 600 MG TABLET ONE (09:04)
[2022-08-09] MEDS: AMOX/CLAVULANATE 250 MG TABLET PO ONE (09:05)
--- NOTE | 2022-08-09 09:05 | NUR ---
LATE ENTRY; AMOXICILLIN CHANGED TO AUGMENTIN
[2022-08-09] MEDS ORDERED: AMOX500C2 PO (09:09)
--- NOTE | 2022-08-09 10:36 | NUR ---
CALLED [facility] FOR TRANSPORT. PER MIRIAM, ETA WILL BE BETWEEN [phone].
[2022-08-09 12:08] VITALS: BP 107/67
[2022-08-10] MEDS: AMOX/CLAVULANATE 250 MG TABLET PO ONE (09:26)
== END 2022-08-09 12:59 | disposition home or self-care (01) ==
LOC: ER 08:49
DX: J02.0 Streptococcal pharyngitis (principal); G43.909 Migraine, unspecified, not intractable, without status migrainosus; I10 Essential (primary) hypertension; J44.9 Chronic obstructive pulmonary disease, unspecified; K21.9 Gastro-esophageal reflux disease without esophagitis; F41.9 Anxiety disorder, unspecified; F31.9 Bipolar disorder, unspecified; Z79.899 Other long term (current) drug therapy

== ENCOUNTER 2022-11-25 13:13 | Inpatient (IN) | payer MEDICARE, OTHER ==
[~2022-11-25] VITALS: Ht 170.2 cm; Wt 75.7 kg
[~2022-11-25 13:13] MED LIST changes: +AMOX500C2 PO
[2022-11-25] MEDS ORDERED: ACETAMINOPHEN ES 500 MG TABLET PO ONE (14:00)
[2022-11-25 14:03] LABS: BASOPHILS % (AUTO) 0.2 % (0.0-2.0); EOSINOPHILS # (AUTO) 0.2 K/uL (0.0-0.7); EOSINOPHILS % (AUTO) 1.8 % (0.0-6.0); HEMATOCRIT 38 % (33-45); HEMOGLOBIN 12.7 g/dL (11.5-14.8); LYMPHOCYTES # (AUTO) 3.8 K/uL (0.8-4.8); LYMPHOCYTES % (AUTO) 38.5 % (20.0-44.0); MEAN CORPUSCULAR HEMOGLOBIN 35 PG (26.0-33.0); MEAN CORPUSCULAR HGB CONC 34 g/dl (31.0-36.0); MEAN CORPUSCULAR VOLUME 104 fL (82-100); MONOCYTES % (AUTO) 10.1 % (2.0-12.0); NEUTROPHILS # (AUTO) 4.8 K/uL (1.8-8.9); NEUTROPHILS % (AUTO) 49.4 % (43.0-81.0); PLATELET COUNT (AUTO) 223 K/uL (150-450); RED BLOOD CELL COUNT(AUTO) 3.64 MIL/uL (4.0-5.2); RED CELL DISTRIBUTION WIDTH 14.1 % (11.5-15.0); WHITE BLOOD COUNT (AUTO) 9.8 K/uL (4.3-11.0)
[2022-11-25 14:11] LABS: CALCIUM, SERUM 8.9 mg/dL (8.5-10.1); CARBON DIOXIDE 24 mmol/L (21-32); CHLORIDE 101 mmol/L (98-107); CREATININE 1.2 mg/dL (0.6-1.3); GLUCOSE 84 mg/dL (74-106); SODIUM SERUM 137 mmol/L (136-145); UREA NITROGEN, BLOOD 30 mg/dL (7-18)
[2022-11-25] MEDS ORDERED: CAPS42.513 TP (14:12)
[2022-11-25] MEDS ORDERED: PRED5DRO17 EACHEYE (14:12)
[2022-11-25] MEDS ORDERED: HYDR-4303 PO (14:12)
[2022-11-25] MEDS ORDERED: LOPE2CAP14 PO (14:12)
[2022-11-25] MEDS ORDERED: MELA5TAB PO (14:12)
[2022-11-25] MEDS ORDERED: CYCL30DR EACHEYE (14:12)
[2022-11-25] MEDS ORDERED: FLUT10.62 IH (14:12)
[2022-11-25] MEDS ORDERED: [UNRECOGNIZED DRUG - CODE] LEFTEYE (14:12)
[2022-11-25] MEDS ORDERED: PHEN15CA PO (14:12)
[2022-11-25 14:17] LABS: ALANINE AMINOTRANSFERASE 17 U/L (12-78); ALBUMIN 3.1 g/dL (3.4-5.0); ALKALINE PHOSPHATASE 72 U/L (46-116); ASPARTATE AMINOTRANSFERASE 18 U/L (15-37); BILIRUBIN,DIRECT 0.1 mg/dL (0.0-0.2); BILIRUBIN,TOTAL 0.3 mg/dL (0.2-1.0); TOTAL PROTEIN, SERUM 6.9 g/dL (6.4-8.2)
[2022-11-25] MEDS ORDERED: ACETAMINOPHEN ES 500 MG TABLET ONE (14:17)
[2022-11-25] MEDS ORDERED: TRAMADOL HCL 50 MG TABLET PO ONE (15:30)
[2022-11-25] MEDS ORDERED: TRAMADOL HCL 50 MG TABLET ONE (15:47)
[2022-11-25] MEDS ORDERED: ACETAMINOPHEN 325 MG TABLET PO PRN ×2 (16:30)
[2022-11-25] MEDS ORDERED: Z GUARD REMEDY 4 OZ OINT TP PRN (16:30)
[2022-11-25] MEDS ORDERED: LOPERAMIDE HCL (2 MG CAP) 2 MG CAPSULE PO PRN (16:30)
[2022-11-25] MEDS ORDERED: ONDANSETRON HCL/PF 4 MG/2 ML VIAL IVP PRN (16:30)
[2022-11-25] MEDS ORDERED: MAG HYDROX/AL HYDROX/SIMETH 30 ML UDC PO PRN (16:30)
[2022-11-25] MEDS ORDERED: MAGNESIUM HYDROXIDE 30 ML UDC PO PRN (16:30)
[2022-11-25] MEDS: DIVALPROEX SODIUM 500 MG TABLET.DR PO SCH (19:03)
[2022-11-25] MEDS: clonazePAM 0.5 MG TABLET PO SCH (19:03)
[2022-11-25] MEDS: BACLOFEN (10 MG) 10 MG TABLET PO SCH (19:03)
[2022-11-25] MEDS: ASCORBIC ACID 500 MG TABLET PO SCH (19:03)
[2022-11-25] MEDS: NEO/POLY/DEXA OPHTH OINT 3.5 GM TUBE LEFTEYE SCH (21:55)
[2022-11-25] MEDS: TOPIRAMATE 25 MG TABLET PO SCH (21:55)
[2022-11-25] MEDS: QUETIAPINE FUMARATE 100 MG TABLET PO SCH (21:55)
[2022-11-25] MEDS ORDERED: POTASSIUM CHLORIDE 20 MEQ TAB.PRT.SR PO ONE (23:30)
[2022-11-26] MEDS: HYDROCODONE/APAP 5/325MG TABLET PO PRN ×2 (00:33→07:46)
[2022-11-26 07:00] VITALS: BP 118/84; TEMP 98; O2SAT 98
[2022-11-26] MEDS: PANTOPRAZOLE 40 MG TABLET.DR PO SCH (07:45)
[2022-11-26] MEDS: BUDESONIDE RESPULE INH 0.5 MG/2 ML AMPUL.NEB IH SCH ×2 (09:00→14:31)
[2022-11-26 09:22] LABS: BASOPHILS % (AUTO) 0.2 % (0.0-2.0); EOSINOPHILS # (AUTO) 0.2 K/uL (0.0-0.7); EOSINOPHILS % (AUTO) 2.2 % (0.0-6.0); HEMATOCRIT 41 % (33-45); HEMOGLOBIN 13.3 g/dL (11.5-14.8); LYMPHOCYTES # (AUTO) 3.3 K/uL (0.8-4.8); LYMPHOCYTES % (AUTO) 31.7 % (20.0-44.0); MEAN CORPUSCULAR HEMOGLOBIN 34 PG (26.0-33.0); MEAN CORPUSCULAR HGB CONC 33 g/dl (31.0-36.0); MEAN CORPUSCULAR VOLUME 105 fL (82-100); MONOCYTES % (AUTO) 9.3 % (2.0-12.0); NEUTROPHILS # (AUTO) 5.9 K/uL (1.8-8.9); NEUTROPHILS % (AUTO) 56.6 % (43.0-81.0); PLATELET COUNT (AUTO) 199 K/uL (150-450); RED BLOOD CELL COUNT(AUTO) 3.88 MIL/uL (4.0-5.2); WHITE BLOOD COUNT (AUTO) 10.4 K/uL (4.3-11.0)
[2022-11-26] MEDS: DOCUSATE SODIUM 100 MG CAPSULE PO SCH (09:40)
[2022-11-26] MEDS: clonazePAM 0.5 MG TABLET PO SCH ×3 (09:40→17:34)
[2022-11-26] MEDS: ARIPIPRAZOLE 5 MG TABLET PO SCH (09:40)
[2022-11-26] MEDS: THIAMINE HCL 100 MG TABLET PO SCH (09:41)
[2022-11-26] MEDS: ATENOLOL 25 MG TABLET PO SCH (09:41)
[2022-11-26] MEDS: CHOLECALCIFEROL 1,000 UNIT TABLET (VIT D3) PO SCH (09:42)
[2022-11-26] MEDS: BACLOFEN (10 MG) 10 MG TABLET PO SCH ×3 (09:42→17:35)
[2022-11-26] MEDS: ASCORBIC ACID 500 MG TABLET PO SCH ×2 (09:42→17:35)
[2022-11-26] MEDS: DIVALPROEX SODIUM 500 MG TABLET.DR PO SCH ×2 (09:42→17:34)
[2022-11-26 09:43] LABS: MAGNESIUM 2.8 mg/dL (1.8-2.4); PHOSPHORUS 4.2 mg/dL (2.5-4.9)
[2022-11-26] MEDS: NEO/POLY/DEXA OPHTH OINT 3.5 GM TUBE LEFTEYE SCH ×3 (09:43→17:35)
[2022-11-26] MEDS: FUROSEMIDE 40 MG TABLET PO SCH (09:43)
[2022-11-26 10:51] LABS: POTASSIUM 3.8 mmol/L (3.5-5.1)
[2022-11-26 16:00] VITALS: BP 101/66; TEMP 97.9; O2SAT 96
[2022-11-26] MEDS: TRAMADOL HCL 50 MG TABLET PO PRN (17:34)
[2022-11-26] MEDS: CLOTRIMAZOLE 1% 15 GM TUBE TP SCH (17:35)
[2022-11-26 20:00] VITALS: BP 101/68; TEMP 97.9; O2SAT 95
[2022-11-26] MEDS: QUETIAPINE FUMARATE 100 MG TABLET PO SCH (21:32)
[2022-11-26] MEDS: TOPIRAMATE 25 MG TABLET PO SCH (21:32)
[2022-11-27 07:30] VITALS: BP 111/60; TEMP 97.9; O2SAT 94
[2022-11-27] MEDS: PANTOPRAZOLE 40 MG TABLET.DR PO SCH (08:15)
[2022-11-27] MEDS: ARIPIPRAZOLE 5 MG TABLET PO SCH (08:15)
[2022-11-27] MEDS: DIVALPROEX SODIUM 500 MG TABLET.DR PO SCH ×2 (08:16→16:47)
[2022-11-27] MEDS: clonazePAM 0.5 MG TABLET PO SCH ×3 (08:16→16:47)
[2022-11-27] MEDS: ASCORBIC ACID 500 MG TABLET PO SCH ×2 (08:16→16:48)
[2022-11-27] MEDS: FUROSEMIDE 40 MG TABLET PO SCH (08:16)
[2022-11-27] MEDS: DOCUSATE SODIUM 100 MG CAPSULE PO SCH (08:17)
[2022-11-27] MEDS: BACLOFEN (10 MG) 10 MG TABLET PO SCH ×3 (08:17→16:47)
[2022-11-27] MEDS: CHOLECALCIFEROL 1,000 UNIT TABLET (VIT D3) PO SCH (08:17)
[2022-11-27] MEDS: ATENOLOL 25 MG TABLET PO SCH (08:17)
[2022-11-27] MEDS: THIAMINE HCL 100 MG TABLET PO SCH (08:17)
[2022-11-27] MEDS: NEO/POLY/DEXA OPHTH OINT 3.5 GM TUBE LEFTEYE SCH ×3 (09:20→16:47)
[2022-11-27] MEDS: CLOTRIMAZOLE 1% 15 GM TUBE TP SCH ×2 (09:20→16:55)
[2022-11-27] MEDS: TRAMADOL HCL 50 MG TABLET PO PRN (14:51)
[2022-11-27 20:00] VITALS: BP 99/69; TEMP 97.7; O2SAT 94
[2022-11-27] MEDS: QUETIAPINE FUMARATE 100 MG TABLET PO SCH (21:09)
[2022-11-27] MEDS: TOPIRAMATE 25 MG TABLET PO SCH (21:09)
[2022-11-28] MEDS: PANTOPRAZOLE 40 MG TABLET.DR PO SCH (07:58)
[2022-11-28 08:00] VITALS: BP 109/78; TEMP 98.2; O2SAT 97
[2022-11-28] MEDS: ASCORBIC ACID 500 MG TABLET PO SCH ×2 (08:38→16:33)
[2022-11-28] MEDS: ARIPIPRAZOLE 5 MG TABLET PO SCH (08:38)
[2022-11-28] MEDS: clonazePAM 0.5 MG TABLET PO SCH ×3 (08:38→16:33)
[2022-11-28] MEDS: CHOLECALCIFEROL 1,000 UNIT TABLET (VIT D3) PO SCH (08:39)
[2022-11-28] MEDS: DOCUSATE SODIUM 100 MG CAPSULE PO SCH (08:39)
[2022-11-28] MEDS: DIVALPROEX SODIUM 500 MG TABLET.DR PO SCH ×2 (08:39→16:33)
[2022-11-28] MEDS: FUROSEMIDE 40 MG TABLET PO SCH (08:39)
[2022-11-28] MEDS: BACLOFEN (10 MG) 10 MG TABLET PO SCH ×3 (08:39→16:33)
[2022-11-28] MEDS: THIAMINE HCL 100 MG TABLET PO SCH (08:39)
[2022-11-28] MEDS: ATENOLOL 25 MG TABLET PO SCH (08:40)
[2022-11-28] MEDS: CLOTRIMAZOLE 1% 15 GM TUBE TP SCH ×2 (09:57→16:33)
[2022-11-28] MEDS: NEO/POLY/DEXA OPHTH OINT 3.5 GM TUBE LEFTEYE SCH ×3 (09:59→16:33)
[2022-11-28] MEDS: TRAMADOL HCL 50 MG TABLET PO PRN (10:49)
[2022-11-28 16:00] VITALS: BP 110/69; TEMP 97.3; O2SAT 99
== END 2022-11-28 17:45 | DRG 552 ==
LOC: ER 13:19 → MED 18:04
PROVIDERS: ATTEND Legal Medicine
DX: M50.123 Cervical disc disorder at C6-C7 level with radiculopathy (principal); F11.20 Opioid dependence, uncomplicated; E03.9 Hypothyroidism, unspecified; F41.9 Anxiety disorder, unspecified; F31.9 Bipolar disorder, unspecified; G89.4 Chronic pain syndrome; G43.909 Migraine, unspecified, not intractable, without status migrainosus; J44.9 Chronic obstructive pulmonary disease, unspecified; Z20.822 Contact with and (suspected) exposure to COVID-19; I10 Essential (primary) hypertension; K21.9 Gastro-esophageal reflux disease without esophagitis; Z86.711 Personal history of pulmonary embolism; Z86.718 Personal history of other venous thrombosis and embolism; Z74.09 Other reduced mobility; R26.9 Unspecified abnormalities of gait and mobility; M48.02 Spinal stenosis, cervical region; Z79.899 Other long term (current) drug therapy; W01.0XXA Fall on same level from slipping, tripping and stumbling without subsequent striking against object, initial encounter; Y99.9 Unspecified external cause status; Z79.51 Long term (current) use of inhaled steroids; M54.30 Sciatica, unspecified side; R79.89 Other specified abnormal findings of blood chemistry; E66.9 Obesity, unspecified; Z68.26 Body mass index [BMI] 26.0-26.9, adult
CPT/HCPCS: 36415; 70450-TC; 70486-TC; 71045-TC; 72125-TC; 80048-TC; 80076-TC; 82962-TC; 83735-TC; 84100-TC; 84484-TC; 85025-TC; 87081-TC; 92526; 92611-TC; 97110-TC; 97116-TC; 97530-TC; G0378